=== PATIENT | female | born 1955 | race Caucasian/White ===

== ENCOUNTER 2016-06-20 13:27 | Emergency (ER) | payer BC ==
--- NOTE | ~2016-06-20 | CT17 ---
[facility] A Service of [facility] RADIOLOGY TEXT RESULTS PATIENT: LUI PANTOJA LOCATION: [facility] : 59 UNIT #: [id number] AGE: [address]: William Madsen DO SEX: F ORDER DR: [id number] [facility] [address] [place], [place] [address] [id number] E MR#: [id number] Acc #: [id number] NAME: LUI PANTOJA. : 1955 SEX: F STUDY DATE/TIME: 06/20/2016 15:21 UNIT: [facility] ROOM: STUDY DESCRIPTION: CT Angio Head Attending Physician: William Madsen D.O. Ordering Physician: William Madsen D.O. Primary Care Physician: Nando Car M.D. MEDICAL IMAGING REPORT This report is preliminary unless electronic signature is present EXAM CT angiogram head and neck with IV contrast HISTORY Frontal headache since yesterday. Nausea for [address] examination was performed with one or more of the following radiation dose reduction techniques: automatic exposure control, adjustment of mA and/or kV according to patient size, and iterative reconstruction. FINDINGS IV contrast enhanced CT angiogram of the head and neck was performed with 3-D reconstructions. CT ANGIOGRAM NECK: The common carotid arteries and carotid bulbs are widely patent and the cervical internal carotid arteries are widely patent with no stenosis by NASCET criteria. There is minimal calcified plaque in the left carotid bulb. Dominant left vertebral artery and hypoplastic right vertebral artery are patent with no focal stenosis. CT ANGIOGRAM BRAIN: The hypoplastic right vertebral artery has a very small post PICA segment. The left intracranial vertebral artery is dominant and primarily supplies the basilar artery. Hypoplastic right A1 segment with patent anterior communicating artery supplying the right A2 segment. The intracranial internal carotid arteries are widely patent bilaterally. The remainder of the anterior cerebral, the middle cerebral, and posterior cerebral arteries are patent bilaterally with no focal stenosis identified. No aneurysm or vascular malformation. Opacified right sphenoid sinus is incidentally noted. IMPRESSION [facility] A Service of [facility] & [facility] RADIOLOGY TEXT RESULTS PATIENT: LUI PANTOJA LOCATION: [facility] #: [id number] : 59 UNIT #: [id number] AGE: [address]: William Madsen DO SEX: F ORDER DR: 1. Normal CT angiogram of the neck. 2. Intracranial CT angiogram demonstrates no major vessel stenosis or occlusion. Developmental variants include hypoplastic right A1 segment, hypoplastic right intracranial vertebral artery, and patent anterior communicating artery. There is also a patent left posterior communicating artery. Dictated by... Modesto Kyle M.D. THIS IS AN ELECTRONICALLY VERIFIED REPORT Modesto Kyle M.D. at 06/21/2016 11:24 PM GISELLE/eleonora TD: 06/21/2016 05:56 JOB #: [id number] MEDICAL IMAGING REPORT COPY
--- NOTE | ~2016-06-20 | EKG ---
PATIENT: LUI PANTOJA UNIT #: [id number] Ventricular Rate: 101 BPM Atrial Rate: 101 BPM P-R Interval: 158 ms QRS Duration: 86 ms Q-T Interval: 362 ms QTC Calculation(Bezet): 469 ms P [place]: 61 degrees Calculated R [place]: 24 degrees Calculated T [place]: 50 degrees Diagnosis Line: Sinus tachycardia Diagnosis Line: Otherwise normal ECG Diagnosis Line: No previous ECGs available Diagnosis Line: Confirmed by JOANA DASILVA MD ([id number]) on 06/20/2016 Diagnosis Line: 5:48:04 PM INTERPRETING MD: BROWN LINARES
--- NOTE | ~2016-06-20 | CT23 ---
[facility] A Service of [facility] & [facility] RADIOLOGY TEXT RESULTS PATIENT: LUI PANTJOA LOCATION: [facility] : 59 UNIT #: [id number] AGE: [address]: William Madsen DO SEX: F ORDER DR: [id number] [facility] [address] [place], [place] [address] [id number] E MR#: [id number] Acc #: [id number] NAME: LUI PANTOJA : 1955 SEX: F STUDY DATE/TIME: 06/20/2016 15:21 UNIT: [facility] ROOM: STUDY DESCRIPTION: CT Angio Neck Attending Physician: William Madsen D.O. Ordering Physician: William Madsen D.O. Primary Care Physician: Nando Car M.D. MEDICAL IMAGING REPORT This report is preliminary unless electronic signature is present EXAM CT angiogram of the neck FINDINGS Please see CT angiogram of the head for results. Dictated by... Modesto Kyle M.D. THIS IS AN ELECTRONICALLY VERIFIED REPORT Modesto Kyle M.D. at 06/21/2016 11:28 PM GISELLE/eleonora TD: 06/21/2016 06:02 JOB #: [id number] MEDICAL IMAGING REPORT COPY
--- NOTE | ~2016-06-20 | CT71 ---
[facility] A Service of [facility] & [facility] RADIOLOGY TEXT RESULTS PATIENT: LUI PANTOJA LOCATION: [facility] : 59 UNIT #: [id number] AGE: [address]: William Madsen DO SEX: F ORDER DR: [id number] [facility] [address] [place], [place] [address] [id number] E MR#: [id number] Acc #: [id number] NAME: LUI PANTOJA. : 1955 SEX: F STUDY DATE/TIME: 06/20/2016 15:17 UNIT: [facility] ROOM: STUDY DESCRIPTION: CT Head Wo Contrast Attending Physician: William Madsen D.O. Ordering Physician: William Madsen D.O. Primary Care Physician: Nando Car M.D. MEDICAL IMAGING REPORT This report is preliminary unless electronic signature is present EXAM CT head, 06/20/2016 HISTORY Frontal headache since 06/19/2016, sinus type headache, nausea 3 days, elevated blood pressure today. FINDINGS This CT exam was performed with one or more of the following radiation dose reduction techniques: Automatic exposure control, adjustment of mA and/or kV according to patient size, and iterative reconstruction. CT head performed skull base through vertex without intravenous contrast. No prior CTs of head for comparison. Brainstem unremarkable. Cerebellum and cerebral hemispheres show normal vaz matter-white matter differentiation. No hemorrhage. No evidence of acute cortical ischemia. The midline structures are nondisplaced and the basal ganglia are intact. Small basal ganglia calcifications bilaterally. Ventricles, cisterns and sulci within normal limits of size and contour. No intra- or extraaxial mass effect or abnormal intracranial fluid collection. The visualized intraorbital soft tissues are unremarkable. Near-complete opacification of the right sphenoid sinus. Mild mucosal thickening left sphenoid sinus. Areas of mucosal thickening in the ethmoid air cells. No fracture. Cavernous carotid arterial calcifications. IMPRESSION 1. Brain appears normal. If the patient has ongoing neurologic symptoms, consider followup imaging, preferably with MRI if the patient is a candidate. 2. There are some scattered cavernous carotid arterial calcifications. 3. Near-complete opacification of the right sphenoid sinus. Much milder mucosal thickening in the left sphenoid sinus. Mild mucosal thickening in ethmoid air cells. [facility]. [facility] A Service of [facility] & [facility] RADIOLOGY TEXT RESULTS PATIENT: LUI PANTOJA LOCATION: [facility] : 59 UNIT #: [id number] AGE: [address]: William Madsen DO SEX: F ORDER DR: Dictated by... Derian Alanis M.D. THIS IS AN ELECTRONICALLY VERIFIED REPORT Derian Alanis M.D. at 06/21/2016 4:18 PM CLEVE/rene TD: 06/20/2016 20:27 JOB #: [id number] MEDICAL IMAGING REPORT COPY
[2016-06-20 13:47] LABS: BASOPHIL% 0.3 % (0-2.5); EOSINOPHIL% 0.2 % (0.0-7.0); HEMATOCRIT 41.2 % (35.0-45.0); HEMOGLOBIN 13.7 gm/dL (12.0-16.0); LYMPHOCYTE% 22.8 % (17.0-45.0); MEAN CELL VOLUME 87.6 FL (83-96); MEAN CORPUSCULAR HEMOGLOBIN 29.2 PG (28-34); MEAN CORPUSCULAR HGB CONC 33.3 g/dL (30-36); MEAN PLATELET VOLUME 7.4 FL (6.5-11.5); MONOCYTE# 0.4 X10e3 (0-1.0); MONOCYTE% 4.4 % (3.0-12.0); NEUTROPHIL# 6.5 X10e3 (1.5-7.1); NEUTROPHIL% 72.3 % (40-75); PLATELET COUNT 271 X10e3 (140-420); RED BLOOD COUNT 4.71 X10e (3.90-5.30); RED CELL DISTRIBUTION WIDTH 13.4 % (11.0-15.5)
[2016-06-20 13:49] LABS: DIFF IND NO
[2016-06-20 14:08] LABS: POC - CKMB 2.3 ng/mL (0.0-7.9); POC - TROPONIN <0.05 ng/mL (<=0.05)
[2016-06-20 14:25] LABS: ALBUMIN SERUM 4.9 g/dL (3.5-5.0); ALKALINE PHOSPHATASE 87 U/L (32-92); ALT (SGPT) 23 U/L (10-40); AST (SGOT) 23 U/L (10-42); BILIRUBIN,TOTAL 0.5 mg/dL (0.2-2.0); BLOOD UREA NITROGEN 9 mg/dL (9-23); CALCIUM SERUM 9.4 mg/dL (8.4-10.2); CARBON DIOXIDE 26 mmol/L (22-31); CHLORIDE 100 mmol/L (100-111); CREATININE SERUM 0.5 mg/dL (0.6-1.4); GLOM FILT RATE Estimated ABOVE60 mL/min (>60); GLUCOSE FASTING 102 mg/dL (70-110); PROTEIN TOTAL SERUM 8.2 g/dL (6.0-8.3); SODIUM 138 mmol/L (135-145)
[2016-06-20 14:31] LABS: BILIRUBIN, DIRECT <0.1 mg/dL (0.0-0.2); BILIRUBIN,INDIRECT 0.4 mg/dL (0.0-0.9)
[2016-06-20 16:47] LABS: URINE SOURCE CLEAN CATCH
[2016-06-20 16:57] LABS: URINE APPEARANCE CLEAR; URINE BILIRUBIN NEG (NEG); URINE BLOOD NEG (NEG); URINE COLOR YELLOW; URINE GLUCOSE NEG (NEG); URINE KETONE 1+ (NEG); URINE LEUKOCYTE ESTERASE TRACE (NEG); URINE NITRATE NEG (NEG); URINE PROTEIN NEG (NEG); URINE SPECIFIC GRAVITY 1.038 (1.003-1.035); URINE UROBILINOGEN 0.2 MG/DL (NEG)
[2016-06-20 17:07] LABS: URINE BACTERIA AUWI NEG (NEGATIVE); URINE SQUAMOUS EPITHELIAL CELL NONE SEEN /[HPF]; UWBCS1 AUWI 0-2 (0-5)
[2016-06-20 17:11] LABS: AMPHETAMINE NEG (NEG); BARBITURATES NEG (NEG); BENZODIAZEPINES NEG (NEG); COCAINE NEG (NEG); MARIJUANA NEG (NEG); OPIATES NEG (NEG); TRICYCLIC ANTIDEPRESSANTS NEG (NEG); U METHADONE NEG (NEG)
[2016-06-20 17:27] LABS: CULTURE INDICATED? NO
== END 2016-06-20 19:00 | disposition home or self-care (01) ==
LOC: CED 13:27
PROVIDERS: Emergency Medicine
DX: J32.9 Chronic sinusitis, unspecified (principal); E78.5 Hyperlipidemia, unspecified; Z98.890 Other specified postprocedural states
CPT/HCPCS: 36415; 70450; 70496; 70498; 80048; 80076; 80307; 81003; 82553; 84484; 85025; 93005; 96361; 96374; 96375; 99284; J1200; J2765; Q9967